=== PATIENT | female | born 1985 | race Caucasian/White ===

== ENCOUNTER 2022-05-20 16:27 | Emergency (ER) | payer MEDICAID ==
[~2022-05-20] VITALS: Ht 160 cm; Wt 66.2 kg
--- NOTE | 2022-05-20 16:44 | NUR ---
PT TAKEN TO ER BED 2 FOR BEDSIDE TRIAGE.
[2022-05-20 16:55] VITALS: BP 101/49
--- NOTE | 2022-05-20 17:00 | NUR ---
SILVIA NARANJOTO AT PT BEDSIDE FOR FURTHER EVALUATION.
--- NOTE | 2022-05-20 17:30 | NUR ---
US TECH AT PT BEDSIDE.
[2022-05-20 17:50] LABS: BASOPHILS % (AUTO) 0.7 % (0.0-2.0); EOSINOPHILS # (AUTO) 0.1 K/uL (0-0.4); EOSINOPHILS % (AUTO) 1.5 % (0.0-4.0); HEMATOCRIT 32.2 % (36-48); HEMOGLOBIN 10.6 g/dL (12.0-16.0); LYMPHOCYTES # (AUTO) 2.2 K/uL (2.5-16.5); LYMPHOCYTES % (AUTO) 30.4 % (20.5-51.1); MEAN CORPUSCULAR HEMOGLOBIN 30 pg (27-31); MEAN CORPUSCULAR HGB CONC 33 g/dL (33-37); MEAN CORPUSCULAR VOLUME 90.3 fL (80-94); MONOCYTES # (AUTO) 0.7 K/uL (0.8-1.0); MONOCYTES % (AUTO) 10.2 % (1.7-9.3); NEUTROPHILS # (AUTO) 4.1 K/uL (1.8-7.7); NEUTROPHILS % (AUTO) 57.2 % (42.2-75.2); PLATELET COUNT (AUTO) 284 K/uL (140-450); RED BLOOD CELL COUNT(AUTO) 3.56 MIL/uL (4.20-5.40); RED CELL DISTRIBUTION WIDTH 13.7 % (11.6-13.7); WHITE BLOOD COUNT (AUTO) 7.1 K/uL (4.8-10.8)
--- NOTE | 2022-05-20 18:19 | NUR ---
PT STATES SUPRAPUBIC 8/10 PAIN CONSTANT. REQUESTING PAIN MEDICATION. ERMD NOTIFIED.
[2022-05-20] MEDS ORDERED: ACETAMINOPHEN EXTRA STRENGTH 500 MG TAB PO ONE (18:35)
--- NOTE | 2022-05-20 18:57 | NUR ---
SILVIA SHIELDS AT PT BEDSIDE FOR REEVALUATION.
[2022-05-20] MEDS ORDERED: ACET-9882 PO (19:15)
--- NOTE | 2022-05-20 19:18 | NUR ---
GAVE REPORT TO JANEL SHAFER. TRANSFER OF CARE AT THIS TIME.
[2022-05-20 19:25] VITALS: BP 128/85
== END 2022-05-20 19:27 | disposition home or self-care (01) ==
LOC: MED 16:27
DX: O20.0 Threatened abortion (principal); O99.011 Anemia complicating pregnancy, first trimester; O34.81 Maternal care for other abnormalities of pelvic organs, first trimester; N83.202 Unspecified ovarian cyst, left side; Z3A.01 Less than 8 weeks gestation of pregnancy; Z79.899 Other long term (current) drug therapy
CPT/HCPCS: 36415; 76817; 81002; 81025; 84702; 85025; 86900; 86901; 99284; Q0092

== ENCOUNTER 2022-07-19 23:44 | Emergency (ER) | payer MEDICAID ==
[~2022-07-19] VITALS: Ht 154.9 cm; Wt 62.6 kg
[~2022-07-19 23:44] MED LIST: ACET-9882 PO
[2022-07-19 23:50] VITALS: BP 100/67
--- NOTE | 2022-07-19 23:55 | NUR ---
to lobby a/w bed ambulatory
--- NOTE | 2022-07-20 00:25 | NUR ---
PATIENT CALLED TO BED , NO RESPONSE PATIENT LEFT WITHOUT BEING SEEN BY DR. TURNER. NO FURTHER CARE PROVIDED FOR PATIENT.
--- NOTE | 2022-07-20 00:30 | NUR ---
CALLED FOR THE SECOND TIME , NO RESPONSE
--- NOTE | 2022-07-20 00:40 | NUR ---
CALLED FOR THE THIRD TIME NO ANSWER
--- NOTE | 2022-07-20 01:25 | NUR ---
INFORMED BY DR. TURNER THAT PT WAS NOT FOUND IN LOBBY OR OUTSIDE
== END 2022-07-20 01:25 | disposition left against medical advice (07) ==
LOC: MED 23:44
DX: O26.891 Other specified pregnancy related conditions, first trimester (principal); Z3A.01 Less than 8 weeks gestation of pregnancy; Z53.21 Procedure and treatment not carried out due to patient leaving prior to being seen by health care provider